=== PATIENT | female | born 1980 ===

== ENCOUNTER 2022-03-23 15:36 | Outpatient (RCR) | payer BC | END 2022-03-27 | LOC: PT 15:36 | PROVIDERS: ATTEND Specialist | DX: M76.61 Achilles tendinitis, right leg (principal); M76.71 Peroneal tendinitis, right leg ==

== ENCOUNTER → 2022-04-27 | Outpatient (RCR) | payer BC | LOC: PT 03-28 06:26 | PROVIDERS: ATTEND Specialist | DX: M76.61 Achilles tendinitis, right leg (principal); M76.71 Peroneal tendinitis, right leg ==